=== PATIENT | female | born 1945 | race Caucasian/White ===

== ENCOUNTER 2017-05-02 15:08 | Emergency (ER) | payer MEDICARE, OTHER ==
[~2017-05-02] VITALS: Ht 157.5 cm; Wt 65.0 kg
[2017-05-02] MEDS ORDERED: PRAV40TA2 PO (15:30)
[2017-05-02] MEDS ORDERED: LEVO100T5 PO (15:30)
[2017-05-02] MEDS ORDERED: LOSA1TAB7 PO (15:30)
[2017-05-02] MEDS ORDERED: SODIUM CHLORIDE 0.9% 1,000ML IVBOLUS ONE (16:00)
[2017-05-02] MEDS ORDERED: SODIUM CHLORIDE FLUSH 10ML SYR IVF ONE (16:00)
[2017-05-02 16:22] LABS: HEMOGLOBIN 12.7 g/dL (11.7-16.4); WHITE BLOOD COUNT 5.6 x10^3/uL (3.4-10)
[2017-05-02 16:31] LABS: BLOOD UREA NITROGEN 13 mg/dL (7-18)
[2017-05-02 16:39] LABS: IS PT STATUS REG ER OR PRE ER? NO
[2017-05-02 17:02] VITALS: BP 136/80
== END 2017-05-02 17:28 | disposition home or self-care (01) ==
LOC: ED 16:19
DX: R55 Syncope and collapse (principal); R11.0 Nausea; I10 Essential (primary) hypertension; E78.00 Pure hypercholesterolemia, unspecified
CPT/HCPCS: 36415; 71010; 80048; 82040; 84484; 85025; 93005; 96360; 99285; J7030